=== PATIENT | female | born 1960 | race American Indian/Alaskan Native ===

== ENCOUNTER 2018-11-24 11:58 | Outpatient (CLI) | payer OTHER | END 2018-11-24 11:59 | disposition home or self-care (01) | LOC: LABHHL 11:58 | PROVIDERS: ATTEND Surgery | DX: C50.911 Malignant neoplasm of unspecified site of right female breast (principal) | CPT/HCPCS: 88305; 88341; 88342 ==

== ENCOUNTER 2018-12-11 13:57 | Outpatient (CLI) | payer OTHER ==
--- NOTE | 2018-12-12 11:16 | Magnetic Resonance Report ---
BILATERAL BREAST MRI WITHOUT AND WITH CONTRAST: 12/11/18 13:57:00 CLINICAL: Newly diagnosed right breast cancer. Status post ultrasound guided needle biopsy by Dr. Rivera on 11/21/18. Pathology revealed invasive ductal carcinoma with extensive necrosis, histologic grade 3, ER/HI negative and HER-2/simin positive with Ki-67 92% TECHNIQUE: Axial 1.0-mm T1 without, axial high resolution 2.0-mm T2 and axial 1.0-mm dynamic Vibrant high-resolution postcontrast T1 fat saturation sequences on a 1.5 Pamella magnet. The examination was performed with an 8 channel dedicated [place] breast coil. Post processing with CAD and subtraction was performed on an [employer] workstation. 18.0 cc of Multihance was injected without incident for the contrast portion of the exam. Consent was obtained prior to the administration of the contrast. FINDINGS: Right: Mild background parenchymal enhancement. The known cancer is an oval irregular enhancing mass in the upper outer quadrant 13.0 cm from the nipple and 4.6 cm from chest wall. It measures 4.2 x 4.0 x 2.9 cm and demonstrates heterogeneous enhancement with mixed kinetics, 411% peak enhancement and 24% type III washout. No other mass or suspicious enhancement of the right breast. Moderate central edema of the left breast on T2. No skin thickening. Several abnormal right axillary lymph nodes. The largest contains a biopsy clip and correlates with a biopsy proven axillary metastasis. Left: Minimal background parenchymal enhancement. No mass or suspicious enhancement. No suspicious lymph nodes. IMPRESSION: A known 4.2 cm right breast cancer and no additional suspicious lesion of either breast. Moderate central edema of the right breast. BI-RADS 6 -- Known Cancer
== END 2018-12-11 13:58 | disposition home or self-care (01) ==
LOC: SPVIMAG 13:57
PROVIDERS: ATTEND Surgery
DX: C50.411 Malignant neoplasm of upper-outer quadrant of right female breast (principal); N64.59 Other signs and symptoms in breast
CPT/HCPCS: A9577; C8908; 77049

== ENCOUNTER 2018-12-12 05:53 | Day surgery (SDC) | payer OTHER ==
[2018-12-12] MEDS ORDERED: LACTATED RINGERS 1,000 ML IV SCH (06:34)
[2018-12-12] MEDS ORDERED: XYLOCAINE 1% 20 mL ONE (06:45)
[2018-12-12] MEDS ORDERED: HEPARIN 10,000 UNITS/10 ML ONE (06:45)
[2018-12-12] MEDS ORDERED: NACL 0.9% 100 ML ONE (06:45)
[2018-12-12] MEDS ORDERED: MARCAINE 0.25% INFILTRATI ONE ×2 (06:45→07:40)
[2018-12-12] MEDS ORDERED: NACL BACTERIOSTATIC INFILTRATI ONE (06:51)
[2018-12-12] MEDS ORDERED: SUBLIMAZE IV PRN (07:08)
[2018-12-12] MEDS ORDERED: ZOFRAN IV PRN (07:08)
--- NOTE | 2018-12-12 07:08 | Anesthesia Day of Surgery ---
Anesthesia Day of Surgery - Day of Surgery Patient Examined: Yes Patient H&P Reviewed: Yes Patient is NPO: Yes Beta Blockers: Yes
[2018-12-12] MEDS ORDERED: PEPCID IV NR (07:11)
--- NOTE | 2018-12-12 07:12 | Anesthesia Consultation ---
Anesthesia Consult and Med Hx Date of service: 12/12/18 - Airway Anesthetic Teeth Evaluation: Good, Dentures ROM Head & Neck: Adequate Mental/Hyoid Distance: Adequate Mallampati Class: Class I Intubation Access Assessment: Good - Pre-Operative Health Status ASA Pre-Surgery Classification: ASA2 Proposed Anesthetic Plan: General, MAC - Cardiovascular System Hx Hypertension: Yes - Gastrointestinal Hx Gastroesophageal Reflux Disease: Yes
[2018-12-12] MEDS ORDERED: ANCEF/STERILE WATER 2 GM/20 ML IV NR (07:15)
[2018-12-12] MEDS ORDERED: SUBLIMAZE ONE (07:31)
[2018-12-12] MEDS ORDERED: DIPRIVAN 10 MG/ML IV ONE (07:32)
[2018-12-12] MEDS ORDERED: HEPARIN 10,000 UNITS/10 ML IV ONE (07:40)
[2018-12-12] MEDS ORDERED: XYLOCAINE 1% 20 mL INFILTRATI ONE (07:40)
[2018-12-12] MEDS ORDERED: VERSED ONE (07:42)
[2018-12-12] MEDS ORDERED: DECADRON ONE (07:54)
[2018-12-12] MEDS ORDERED: XYLOCAINE MPF 2% ONE (07:54)
[2018-12-12] MEDS ORDERED: ROBINUL ONE (07:54)
[2018-12-12] MEDS ORDERED: ZOFRAN ONE (07:54)
[2018-12-12] MEDS ORDERED: VERSED IV NR (08:00)
--- NOTE | 2018-12-12 08:58 | Short Stay Summary ---
Short Stay Documentation Date of service: 12/12/18 - History Principal diagnosis: breast cancer H&P: obtained from office - Allergies and Medications Current Medications: Allergies adhesive tape Adverse Reaction (Verified 12/12/18 07:39) Unknown BLISTERS SKIN Home Medications Medication Instructions Recorded Confirmed Last Taken Type Carvedilol [Coreg] 6.25 mg PO DAILY 12/12/18 12/12/18 12/12/18 04:30 History HYDROcodone/APAP 5-325 [[place] 5 - 325 mg PO Q6HR 12/12/18 12/12/18 Unknown History 5-325 mg TAB] Losartan/Hydrochlorothiazide 1 tab PO DAILY 12/12/18 12/12/18 12/12/18 04:30 His tory [Losartan-Hctz 50-12.5 mg Tab] Active Medications Cefazolin Sodium (Ancef/Sterile Water 2 Gm/20 Ml) 2 gm IV PREOP NR Stop: 12/12/18 23:59 Famotidine (Pepcid) 20 mg IV PREOP NR Stop: 12/12/18 16:00 Last Admin: 12/12/18 07:24 Dose: 20 mg Documented by: Fentanyl (Sublimaze) 50 mcg IV Q5MIN PRN PRN Reason: Pain , Severe (7-10) Stop: 12/12/18 16:00 Lactated Ringer's (Lactated Ringers) 1,000 mls @ 75 mls/hr IV DIRECT JAZZ Last Admin: 12/12/18 07:00 Dose: 75 mls/hr Documented by: Midazolam HCl (Versed) 2 mg IV PREOP NR Stop: 12/12/18 23:59 Last Admin: 12/12/18 07:23 Dose: 2 mg Documented by: Ondansetron HCl (Zofran) 4 mg IV ONCE PRN PRN Reason: Nausea And Vomiting Stop: 12/12/18 16:00 - Brief post op/procedure progress note Date of procedure: 12/12/18 Pre-op diagnosis: breast cancer Post-op diagnosis: same Procedure: left subclavian port a cath placement using mindray ultrasound guidance, fluoroscopy Anesthesia: GETA, local Findings: good placement of port without PTX on post op CXR Surgeon: LOW CASTRO Estimated blood loss: minimal Pathology: none Condition: stable - Hospital course Hospital course: Pt observed in PACU and discharged in stable condition when criteria met - Disposition Condition at discharge: Good Disposition: DC-01 TO HOME OR SELFCARE Short Stay Discharge Plan Activity: no restrictions Diet: regular Wound: open to air Additional Instructions: SEE PRINTED DISCHARGE INSTRUCTIONS Follow up with: MARIA R PRESCOTT MD [Primary Care Provider] - 7 Days LOW CASTRO DO [Staff Physician] - 14 Days Prescriptions: Ibuprofen [Motrin 800 MG tab] 800 mg PO Q8HR PRN #30 tablet PRN Reason: Pain, Moderate (4-6)
--- NOTE | 2018-12-12 09:11 | Fluoroscopy Report ---
AP CHEST: HISTORY: Vxsbdo-l-Rrlk insertion, breast cancer A left subclavian Qbofrs-n-Feku has been inserted which terminates in the right atrium. There is no evidence for pneumothorax. AP view of the chest demonstrates a normal mediastinal and cardiac contour with clear lungs and normal bony and soft tissue structures. IMPRESSION: [id number]-Lmkb placement as described. No pneumothorax.
[2018-12-12 09:37] VITALS: BP 140/78
--- NOTE | 2018-12-12 09:41 | Operative Report ---
PREOPERATIVE DIAGNOSIS: Breast cancer. POSTOPERATIVE DIAGNOSIS: Breast cancer. PROCEDURE: Left subclavian Port-A-Cath placement using Mindray ultrasound guidance, fluoroscopy. ANESTHESIA: LMA and local. FINDINGS: Good placement of port without pneumothorax and postop chest x-ray. SURGEON: Thais Paz DO ESTIMATED BLOOD LOSS: Minimal. PATHOLOGY: None. CONDITION AND DISPOSITION: The patient is stable to PACU. HISTORY OF PRESENT ILLNESS AND INDICATION: The patient is a 58-year-old female who was recently diagnosed with right-sided breast cancer and deemed a candidate for chemotherapy. Her breast surgeon was Dr. Rivera and her oncologist is Dr. Berg. All risks, benefits and alternatives to surgery were discussed with the patient and consent obtained. All questions were answered. PROCEDURE IN DETAIL: The patient was identified in the preoperative area and taken back to the operating room and placed on the operating table in supine position. After anesthesia was induced, both arms were tucked with all bony prominences padded and a shoulder roll was placed across the shoulders. The bilateral upper chest and neck were prepped and draped in the usual sterile fashion and timeout was performed. Using the Front Appray ultrasound, the left subclavian vein was identified and compressible. Local anesthetic was infiltrated into the skin and subcutaneous tissue at the intended puncture site. The subclavian vein was punctured using ultrasound guidance and there was return of dark red nonpulsatile blood on the first stick. Wire was threaded without resistance and positioned in the right atrium using fluoroscopy. The needle was then removed and the wire secured to the drapes using hemostat. Local anesthetic was then infiltrated into the left upper chest at the intended incision site. A 4-cm horizontal incision was made in the left upper chest using a 15 blade. Dissection was carried down through skin and subcutaneous tissue using Bovie electrocautery until the prepectoral fascia was encountered. A pocket was then created for the port using electrocautery and blunt dissection. The pocket was checked for hemostasis, which was carefully ensured. The tunneler and catheter were then tunneled from the pocket to the wire and the breakaway catheter sheath was then inserted over the wire and advanced under direct fluoroscopic visualization. The wire and dilator were then removed and the catheter threaded through the break-away sheath and the break-away sheath removed in the usual fashion. The tip of the wire was seen to lay in the right atrium and the positioning was adequate. The port was then cut to size and assembled in the usual fashion. The port was sutured to the prepectoral fascia using interrupted 2-0 Vicryl sutures. The port was tested with heparinized saline and did return dark red blood without difficulty and flushed easily. The port was then instilled with 3000 units of straight heparin. The pocket was once again irrigated and irrigant returned clear. Hemostasis was carefully ensured. The deep dermal layer of the incision was then closed with 3-0 Vicryl interrupted sutures. Both skin incisions were closed with 4-0 Monocryl subcuticular stitches and skin glue. At the end of the case, all sponge, instrument, sharp counts were correct x 2. A postoperative chest x-ray performed showed the port in good positioning without a pneumothorax. The patient was then taken to PACU in stable condition. JOB# [id number] AMBROSIO/LEANDRO
--- NOTE | 2018-12-12 18:55 | Post Anesthesia Evaluation ---
- Post Anesthesia Evaluation Patient Participated: Yes Airway Patent: Yes Stable Respiratory Function: Yes Nausea/Vomiting: No Temp > 96.8F: Yes Pain Manageable: Yes Adequeate Hydration: Yes Anesthesia Complications: No Block Receding Appropriately: Not Applicable Patient on Ventilator: No
== END 2018-12-12 05:54 | disposition home or self-care (01) ==
LOC: OR 05:53
PROVIDERS: ATTEND Surgery
DX: C50.919 Malignant neoplasm of unspecified site of unspecified female breast (principal); I10 Essential (primary) hypertension; K21.9 Gastro-esophageal reflux disease without esophagitis; Z98.51 Tubal ligation status; Z98.890 Other specified postprocedural states; Z79.899 Other long term (current) drug therapy
CPT/HCPCS: 36561; 77001; 81025; C1769; C1788; J0690; J1100; J1644; J2250; J2405; J2704; J3010; J7120

== ENCOUNTER 2018-12-13 10:28 | Outpatient (CLI) | payer OTHER ==
[2018-12-13 11:44] LABS: Blood Urea Nitrogen 15 mg/dL (7-17)
--- NOTE | 2018-12-13 14:58 | Cat Scan Report ---
CT scan of chest abdomen and pelvis with IV contrast: History: Malignant neoplasm of upper outer quadrant right female breast. Findings: There is 3.5 cm circumscribed mass noted the upper-outer quadrant right breast. Adjacent satellite nodule measuring 5 mm in diameter also noted. No distinct mass is identified in the left breast parenchyma. The axillary nodes do not appear enlarged. No endobronchial or mediastinal mass. No mediastinal or hilar adenopathy. Normal lung parenchyma. No discrete nodularity or consolidation. Minimal scarring noted. Normal liver spleen pancreas and gallbladder. Normal adrenals kidney parenchyma and urinary bladder. No free intraperitoneal fluid or air. The uterus and ovaries appear normal. No evidence of adenopathy. Stool in colon. Normal appendix. No evidence of diverticulitis. Impression: Right breast mass as detailed above. No evidence of mediastinal or abdominal lymphadenopathy. No distinct mass noted in the lung parenchyma and abdomen and pelvis.
--- NOTE | 2018-12-13 15:22 | Nuclear Medicine Report ---
NUCLEAR MEDICINE WHOLE-BODY BONE SCAN: 12/13/18 10:45:00 CLINICAL: Newly diagnosed right breast cancer. COMPARISON: A same-day CT CAP TECHNIQUE: 26.8 millicuries technetium 99m MDP was injected intravenously and whole body scans were obtained at 3 hours. FINDINGS: No suspicious areas of uptake. Mild uptake in the lower lumbar spine is consistent with bilateral lower lumbar degenerative facet joint disease identified on the CT. Benign uptake in the shoulders, sternum, knees and feet. IMPRESSION: Negative study with no evidence of metastatic disease.
== END 2018-12-13 10:29 | disposition home or self-care (01) ==
LOC: NM 10:28
PROVIDERS: ATTEND Internal Medicine Hematology & Oncology
DX: N63.11 Unspecified lump in the right breast, upper outer quadrant (principal); I10 Essential (primary) hypertension; K21.9 Gastro-esophageal reflux disease without esophagitis
CPT/HCPCS: 36415; 71260; 74177; 78306; 82565; 84520; A9503; Q9967

== ENCOUNTER 2018-12-27 14:56 | Outpatient (CLI) | payer OTHER ==
--- NOTE | 2018-12-27 16:17 | Ultrasound Report ---
ULTRASOUND GUIDED NEEDLE CORE BIOPSY OF A RIGHT AXILLARY LYMPH NODE WITH CLIP PLACEMENT : 12/27/18 14:56:00 CLINICAL: Right breast cancer. This procedure is being repeated since there is some question as to the validity of the previous biopsy result. COMPARISON :12/11/18 MRI FINDINGS: The procedure was explained to the patient and informed consent was obtained. Ultrasound demonstrated the previously biopsied suspicious lymph node with a biopsy clip. A search for additional lymph nodes that found no other lymph node more suitable for sampling. The skin in the axilla was prepped with Betadine and anesthetized with 1% lidocaine. Ultrasound guided needle core biopsy of the lymph node with a biopsy clip was performed through a small dermatotomy using 2% lidocaine with epinephrine for deep anesthesia and a 18-gauge Achieve biopsy device. 2 samples were obtained and placed in formalin. A clip was deployed within the lymph node. Hemostasis was achieved with minimal effort and a sterile dressing was applied. The patient tolerated the procedure well and there were no apparent complications. She was discharged in good condition and was given instructions for wound care and followup. IMPRESSION: Uncomplicated ultrasound-guided needle core biopsy of a right lymph node with clip placement.
== END 2018-12-27 14:57 | disposition home or self-care (01) ==
LOC: SPVWC 14:56
PROVIDERS: ATTEND Surgery
DX: D36.0 Benign neoplasm of lymph nodes (principal); C50.911 Malignant neoplasm of unspecified site of right female breast; I10 Essential (primary) hypertension; K21.9 Gastro-esophageal reflux disease without esophagitis; Z98.890 Other specified postprocedural states; Z98.51 Tubal ligation status; Z79.899 Other long term (current) drug therapy
CPT/HCPCS: 38505; 76942; A4648; 88305; 88342